=== PATIENT | male | born 1970 | race Two or more races ===

== ENCOUNTER 2019-09-06 12:31 | Emergency (ER) | payer SELFPAY ==
[~2019-09-06] VITALS: Ht 172.7 cm; Wt 97.5 kg
[2019-09-06] MEDS ORDERED: KETOROLAC TROMETH 60MG/2ML VIAL IM ONE (16:00)
[2019-09-06 16:40] VITALS: BP 158/92
== END 2019-09-06 17:06 | disposition home or self-care (01) ==
LOC: ER 12:31
DX: M54.5 Low back pain (principal)
CPT/HCPCS: 72100; 96372; 99283; J1885